=== PATIENT | female | born 1950 | race Caucasian/White ===

== ENCOUNTER 2017-05-31 12:11 | Emergency (ER) | payer BC ==
[~2017-05-31] VITALS: Ht 165.1 cm; Wt 120.5 kg
[~2017-05-31 12:11] MED LIST: ALLERGY RELIEF10 MG PO; ASPIRIN 32325 MG/TAB PO; CITALOPRAM20 MG PO; IBUPROFEN200 M1 PO; LISINOPRIL/HCTZ1 TA1 PO; MULTIPLE VITAMI1 CAP PO
[2017-05-31 12:16] VITALS: TEMP 97.4
[2017-05-31 13:08] LABS: BASO # 0.1 (0.0-0.2); BASO % 0.9 % (0.0-2.0); EOS # 0.3 (0.0-0.7); EOS % 4.3 % (0-4.0); GRAN # 3.6 (1.4-6.5); GRAN % 61.7 % (42.2-75.2); HEMATOCRIT 36.7 % (37.0-47.0); HEMOGLOBIN 12.4 g/dl (12.5-16.0); LYMPH # 1.4 (1.2-3.4); LYMPH % 24.9 % (20.0-51.0); MEAN CELL VOLUME 90 fl (80.0-100.0); MEAN CORPUSCULAR HEMOGLOBIN 30 pg (27.0-31.0); MEAN CORPUSCULAR HGB CONC 34 g/dl (33.0-37.0); MONO # 0.5 (0.1-0.6); PLATELET COUNT 197 K/mm3 (130-400); REDCELL DISTRIBUTION WIDTH-CV 13.1 % (11.5-14.5); WHITE BLOOD COUNT 5.8 K/mm3 (4.8-10.8)
[2017-05-31 13:27] LABS: ADJUSTED CALCIUM 9.1 mg/dL (8.4-10.2); ALBUMIN 4.1 gm/dL (3.5-5.0); BILIRUBIN,TOTAL 0.5 mg/dL (0.0-1.0); CALCIUM 9.2 mg/dL (8.4-10.2); CREATININE, serum 0.7 mg/dL (0.52-1.25); POTASSIUM 3.6 mmol/L (3.4-5.0); TOTAL PROTEIN 7.3 gm/dL (6.4-8.2)
[2017-05-31] MEDS ORDERED: ANTIVERT 25MG25 MG PO (14:17)
[2017-05-31] MEDS ORDERED: ZOFRAN ODT4 MG PO (14:33)
[2017-05-31 14:52] VITALS: BP 137/84; PULSE 64
== END 2017-05-31 15:01 | disposition home or self-care (01) ==
LOC: COL.ER 12:11
PROVIDERS: Emergency Medicine
DX: H81.10 Benign paroxysmal vertigo, unspecified ear (principal); H93.19 Tinnitus, unspecified ear; I10 Essential (primary) hypertension; E78.5 Hyperlipidemia, unspecified

== ENCOUNTER → 2017-10-02 | Outpatient (CLI) | payer BC ==
[~2017-10-02] MED LIST changes: +ANTIVERT 25MG25 MG PO; +ZOFRAN ODT4 MG PO
== END ==
LOC: COL.VAS 10:53
DX: I34.0 Nonrheumatic mitral (valve) insufficiency (principal)

== ENCOUNTER → 2017-10-22 | Outpatient (CLI) | payer BC | LOC: MC.RAD 11:20 | DX: Z12.31 Encounter for screening mammogram for malignant neoplasm of breast (principal) ==

== ENCOUNTER → 2019-01-09 | Outpatient (CLI) | payer MEDICARE, BC | LOC: MC.RAD 14:15 | DX: Z12.31 Encounter for screening mammogram for malignant neoplasm of breast (principal) ==

== ENCOUNTER → 2019-12-01 | Outpatient (CLI) | payer BC, MEDICARE | LOC: COL.VAS 08:46 | DX: I27.21 Secondary pulmonary arterial hypertension (principal); I08.1 Rheumatic disorders of both mitral and tricuspid valves ==

== ENCOUNTER → 2020-05-04 | Outpatient (CLI) | payer BC, MEDICARE | LOC: COL.RAD 07:00 | DX: I67.82 Cerebral ischemia (principal); G62.89 Other specified polyneuropathies; M54.17 Radiculopathy, lumbosacral region ==

== ENCOUNTER → 2021-05-12 | Outpatient (CLI) | payer MEDICARE, BC | LOC: MC.RAD 11:30 | DX: Z12.31 Encounter for screening mammogram for malignant neoplasm of breast (principal) ==

== ENCOUNTER → 2022-06-06 | Outpatient (CLI) | payer MEDICARE, BC | LOC: COL.VAS 06-01 10:45 | DX: I34.0 Nonrheumatic mitral (valve) insufficiency (principal); I27.21 Secondary pulmonary arterial hypertension ==

== ENCOUNTER → 2022-07-02 | Outpatient (CLI) | payer MEDICARE, BC | LOC: MC.RAD 13:15 | DX: Z12.31 Encounter for screening mammogram for malignant neoplasm of breast (principal) ==